=== PATIENT | female | born 1990 | race Caucasian/White ===

== ENCOUNTER 2017-11-23 10:56 | Inpatient (IN) | payer BC, OTHER ==
[~2017-11-23] VITALS: Ht 167.6 cm; Wt 65.8 kg
[2017-11-24] MEDS ORDERED: ONDANSETRON 4 MG/2 ML VIAL IM PRN (01:30)
[2017-11-24] MEDS ORDERED: DICYCLOMINE HCL 20 MG TABLET PO PRN (01:30)
[2017-11-24] MEDS ORDERED: LORAZEPAM 2 MG/1 ML VIAL IM PRN (01:30)
[2017-11-24] MEDS ORDERED: LOPERAMIDE HCL 2 MG CAPSULE PO PRN ×2 (01:30)
[2017-11-24] MEDS ORDERED: HYDROXYZINE PAMOATE 25 MG CAPSULE PO PRN (01:30)
[2017-11-24] MEDS ORDERED: diphenhydrAMINE 50 MG CAPSULE PO PRN (01:30)
[2017-11-24] MEDS ORDERED: DIAZEPAM 5 MG TABLET PO PRN (01:30)
[2017-11-24] MEDS ORDERED: BUPRENORPHINE HCL 2 MG TAB.SUBL SL PRN (01:30)
[2017-11-24] MEDS ORDERED: MAGNESIUM HYDROXIDE 30 ML LIQUID UDC PO PRN (01:30)
[2017-11-24] MEDS ORDERED: MAG HYDROX/AL HYDROX/SIMETH 30 ML LIQUID UDC PO PRN (01:30)
--- NOTE | 2017-11-24 02:00 | NUR ---
Intake Note: Pt is a 27 y/o female seen at intake, A&O x 4 and presents with anxiety, Nausea, stomach cramps, disheveled hair and restlessness. Pt is ambulatory with steady gait. Vital signs : BP 110/69, HR 86, RR 16, T 98.8, SaO2 96%, PA 2/10. Pt denies any allergies (NKA's) or seizure history. Pt reports longest period of sobriety at 1 year, ending in 2016, and has been using Xanax, Klonopin, Heroin and Methadone. Pt reports a PMH of anxiety, PSVT with ablation (2014), left hand surgery (2016), G2,P2. Pt brought no home medications. Educated pt rules and policies of the unit including handling of contraband and taking vital signs Q4H. Will continue care of patient upon arrival on unitl
[2017-11-24 02:32] LABS: *URINE HCG, QUAL NEGATIVE (NEGATIVE)
--- NOTE | 2017-11-24 02:45 | NUR ---
Admission Note: Pt arrived on the unit at 0215 on 11/24/17 for Benzo, and Opiate withdrawal. Skin and body check completed, skin intact and no contraband found. R anterior thigh presents with c/o pain (injection site, red, warm, inflamed). Pt is 5'6", and 145 lbs, Pt c/o possible weight loss of 15 lbs in last month. Initial COWS 13, CIWA 13. VS's BP 105/67, HR 86, RR 18, T 98.7, SaO2 96%. Pt is at moment a full code, but wishes to be made a DNR, is on a regular diet, with NKA's. Pt has a PMH of anxiety, PSVT with ablation in 2015, L hand surgery, and G2, P2. Reports both parents had substance abuse issues, she believes with crack cocaine and heroin, but doesn't remember since courts removed her at a very young age. Pt smokes about 20 cigarettes/day, refuses smoking cessation consult. Pt is < 65 and out of season for flu shot. LMP was about 3 years ago, pt denies control. Substance Use History: 1. Benzodiazapines: Xanax and Klonopin , PO 6mg/day daily for last 5 years. Last used on the . 2. Heroin 2-3 g/day IV daily for the last year, last used on the . 3. Methadone 40mg/day daily for the last 3 years, last used on the . Pt has been part of an outpatient Methadone clinic, but has never attended a detox or rehab facility before. Longest period of sobriety has been 1 year, ending in 2017. Pt does not attend AA, NA, have a home group not a sponsor. 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 When asked why she decided to come into treatment, pt responds "Been on Methadone for 3 years and its not working so I just want to get off of everything". Symptoms when not using are described as "I feel like I've been hit by a bus. Runny nose, nausea and vomiting. Cold spells, really achy joints. Really bad". Pt is A&O x 4, speech is coherent, pt is ambulatory with steady gait. Pt presents with anxiety, nausea, stomach cramps, disheveled hair and restlessness. Denies SI/HI at this time. PERRLA. Respirations even and nonlabored, lung sounds are clear in all lung clements. Denies chest pain or SOB. Abdomen soft and non tender, bowel sounds active in all 4 quadrants. Last BM 11/23/17. Pt oriented to room and educated patient about smoking and unit rules, how to use call light, pt verbalized understanding Safety measures in place, side rails up x 2 with pads, bed in lowest position. Call light within reach. Admitting orders have been placed. Addendum: 11/24/17 at 0630 by AR COREAS RN previous surgeries done at [facility], [place], [place]. Previous limousine rental clerk Dr Sahil Hou. Pt hospitalized for 10 days in 2016 for L hand surgery
[2017-11-24 02:48] LABS: *AMPHETAMINE, URINE NEGATIVE (NEGATIVE); *BARBITURATE, URINE NEGATIVE (NEGATIVE); *CANNABINOID, URINE NEGATIVE (NEGATIVE); *COCCAINE, URINE NEGATIVE (NEGATIVE); *OPIATE, URINE POSITIVE (NEGATIVE); *PHENCYCLIDINE SCREEN,URINE NEGATIVE (NEGATIVE)
[2017-11-24] MEDS: DIAZEPAM 10 MG TABLET PO PRN ×3 (03:38→14:46)
[2017-11-24] MEDS: METHOCARBAMOL 750 MG TABLET PO PRN ×2 (03:38→13:14)
--- NOTE | 2017-11-24 03:38 | NUR ---
PRN Meds Robaxin 750mg PO for generalized B/A, RLE pain, and Valium 10mg PO for anxiety, Benzo W/D given. Will continue to monitor pt, reassessing in 1 hour, promptly attending to all pt needs.
[2017-11-24 04:00] VITALS: BP 105/67
--- NOTE | 2017-11-24 04:38 | NUR ---
PRN Reassessment Robaxin 750mg PO for B/A's and Valium 10mg PO for benzo withdrawal given 1 hour prior. At present pt sleeping, RR 14, even and nonlabored. Meds effective.
[2017-11-24 06:57] LABS: ALANINE AMINOTRANSFERASE 35 U/L (14-59); ALKALINE PHOSPHATASE 122 U/L (50-136); AMYLASE 22 U/L (25-115); ASPARTATE AMINOTRANSFERASE 22 U/L (15-37); BILIRUBIN,TOTAL 0.9 mg/dL (0.2-1.0); CARBON DIOXIDE 31 mmol/L (21-32); CHLORIDE 103 mmol/L (98-107); CREATININE 0.7 mg/dL (0.6-1.3); GLUCOSE 143 mg/dL (74-106); LIPASE 57 U/L (73-393); MAGNESIUM 2.1 mg/dL (1.8-2.4); POTASSIUM 4.1 mmol/L (3.5-5.1); TOTAL PROTEIN, SERUM 8.3 g/dL (6.4-8.2); UREA NITROGEN, BLOOD 7 mg/dL (7-18)
[2017-11-24 07:01] LABS: THYROID STIMULATING HORMONE 0.883 mIU/mL (0.358-3.740)
[2017-11-24 07:12] LABS: BASOPHILS # (AUTO) 0.1 K/uL (0.0-8.0); BASOPHILS % (AUTO) 0.5 % (0.0-2.0); EOSINOPHILS # (AUTO) 0.1 K/uL (0.0-0.7); EOSINOPHILS % (AUTO) 0.7 % (0.0-7.0); HEMATOCRIT 39.8 % (31.2-41.9); LYMPHOCYTES # (AUTO) 1.7 K/uL (20.0-40.0); LYMPHOCYTES % (AUTO) 15.9 % (20.5-51.5); MEAN CORPUSCULAR HEMOGLOBIN 30.6 uug (24.7-32.8); MEAN CORPUSCULAR HGB CONC 35 g/dL (32.3-35.6); MEAN CORPUSCULAR VOLUME 87.3 fL (75.5-95.3); MONOCYTES # (AUTO) 0.9 K/uL (2.0-10.0); MONOCYTES % (AUTO) 8.2 % (0.0-11.0); NEUTROPHILS # (AUTO) 8.1 K/uL (1.8-8.9); NEUTROPHILS % (AUTO) 74.7 % (38.5-71.5); PLATELET COUNT (AUTO) 146 K/uL (179-408); RED BLOOD CELL COUNT(AUTO) 4.56 MIL/uL (3.63-4.92); WHITE BLOOD COUNT (AUTO) 10.8 K/uL (3.8-11.8)
--- NOTE | 2017-11-24 07:15 | NUR ---
START OF SHIFT: PATIENT IS A 27 YR OLD FEMALE ADMITTED TO [facility] ON 11/24/17 ( EARLY THIS AM) FOR A MEDICALLY SUPERVISED WITHDRAWAL FROM BENZODIAZEPINES( XANAX AND KLONOPIN) AND OPIATES ( HEROIN IV AND METHADONE). SHE IS ASLEEP IN BED AT THIS TIME, BREATHING EVEN AND UNLABORED, SIDE RAILS UP X2, CALL LIGHT WITHIN REACH. PRN MEDS GIVEN ON PM SHIFT : VALIUM 10MG PO AND ROBAXIN 750MG PO, SHE SLEPT FOR 3+ HOURS AND LAST COWS 13 AND CIWA 13. WAITING FOR MD TO SEE PATIENT AND ORDER TAPER SO PRN MEDS AVAILABLE AT THIS TIME. CONTINUE TO MONITOR AND OFFER SUPPORT NEEDED.
--- NOTE | 2017-11-24 07:36 | NUR ---
End of Shift Pt is a 27 y/o female admitted 11/24/17 for medically managed withdrawal/detox from Benzodiazapines, and Opiates. Pt is a full code, wishing to be converted to a DNR, on a regular diet with NKS's. Pt presents with a PMH of anxiety, PSVT with ablation, L hand surgery, and G2, P2. Pt remains on Valium PRN's for sliding CIWA's. Last CIWA was 13 at 0400. Pt slept for 3 hours with 729 mls intake, 1 void and no BM's. Admission done, pt medicated with 10 mg Valium PO and Robaxin 750mg PO. Endorsement given to day nurse.
[2017-11-24 08:00] VITALS: BP 102/67
[2017-11-24 08:15] LABS: ETHANOL < 3 MG/DL (0-0)
[2017-11-24] MEDS ORDERED: MULTIVITAMINS,THERAPEUTIC TABLET PO SCH (09:00)
[2017-11-24] MEDS: ACETAMINOPHEN 325 MG TABLET PO PRN ×2 (09:00→16:28)
[2017-11-24] MEDS: IBUPROFEN 600 MG TABLET PO PRN ×2 (09:00→16:28)
--- NOTE | 2017-11-24 09:00 | NUR ---
PRN MEDICATION: VALIUM 10MG PO GIVEN FOR S/S OF WITHDRAWAL, ANXIETY, DIAPHORESIS, RESTLESSNESS CIWA 13 [id number] PO AND TYLENOL 650MG PO GIVEN FOR RIGHT THIGH PAIN 11/17 WILL REASSESS
--- NOTE | 2017-11-24 10:00 | NUR ---
PRN REASSESS PATIENT IS LESS ANXIOUS, VALIUM EFFECTIVE, PAIN IN RIGHT THIGH STILL PRESENT, WILL HAVE MD CHECK. PAIN NOW 4/10 , TYLENOL AND MOTRIN MILDLY EFFECTIVE
[2017-11-24 12:32] VITALS: BP 102/66
[2017-11-24] MEDS: DIAZEPAM 10 MG TABLET PO SCH ×3 (13:14→20:46)
--- NOTE | 2017-11-24 13:15 | NUR ---
PRN ROBAXIN ROBAXIN 750MG PO GIVEN FOR REPORTS OF GENERALIZED BODY PAIN 11/17 WILL REASSESS
--- NOTE | 2017-11-24 14:15 | NUR ---
PRN REASSESS ROBAXIN 750MG PO EFFECTIVE, PAIN LEVEL NOW 3/10, CONT TO MONITOR
[2017-11-24] MEDS: CEPHALEXIN MONOHYDRATE 500 MG CAPSULE PO SCH ×2 (14:41→20:47)
--- NOTE | 2017-11-24 14:45 | NUR ---
PRN VALIUM 10MG PO VALIUM GIVEN FOR S/S OF WITHDRAWAL, SWEATING, RESTLESSNESS AND HIGH ANXIETY CIWA 14
--- NOTE | 2017-11-24 15:45 | NUR ---
PRN VALIUM REASSESS VALIUM EFFECTIVE, PT IS LESS ANXIOUS AND STATES SHE FEELS " MORE RELAXED" CIWA NOW 12
[2017-11-24 16:00] VITALS: BP 92/68
--- NOTE | 2017-11-24 16:30 | NUR ---
MOTRIN/TYLENOL PRN MOTRIN 600MG PO AND TYLENOL 650 PO GIVEN FOR HEADACHE 5/10 WILL REASSESS
--- NOTE | 2017-11-24 17:30 | NUR ---
PRN REASSESS MOTRIN AND TYLENOL EFFECTIVE, PAIN NOW 07/20
[2017-11-24] MEDS: MIRALAX 17 GM POWD.PACK PO PRN (18:43)
--- NOTE | 2017-11-24 18:45 | NUR ---
PRN VALIUM/ MIRALAX VALIUM 10MG PO GIVEN FOR S/S OF WITHDRAWAL, HIGH ANXIETY, DIAPHORESIS, RESTLESSNESS MIRALAX 17G PO FOR HARD STOOL
--- NOTE | 2017-11-24 19:19 | NUR ---
END OF SHIFT: PATIENT IS A 27 YR OLD FEMALE ADMITTED TODAY 11/24/17 TO [facility] FOR A MEDICALLY SUPERVISED WITHDRAWAL FROM BENZODIAZEPINES ( XANAX AND KLONIPIN) AND OPIATES ( HEROIN AND METHADONE). SHE STARTED A 5 DAY VALIUM TAPER TODAY AND TOMORROW WILL START A 5 DAY SUBUTEX TAPER . SHE HAS BEEN ISOLATED TO HER ROOM THIS SHIFT, HER MOOD IS FLAT AND DEPRESSED, HER WITHDRAWAL SYMPTOMS TODAY HAVE INCLUDED : DIAPHORESIS, HIGH ANXIETY, RESTLESSNESS, HEADACHE AND GENERALIZED BODY ACHES. PRN MEDICATIONS GIVEN THIS SHIFT : MOTRIN X2, TYLENOL X2, VALIUM 10MG X3, AND ROBAXIN. LAST COWS 11 AND CIWA 12 @ 1600. MD ORDERED KEFLEX 500MG PO TID FOR RIGHT THIGH CELLULITIS. EKG PERFORMED DUE TO PATIENT HISTORY OF PSVT. SHE HAD A FLUID INTAKE OF 2600 ML,4 VOIDS AND 1 BM. CONTINUE TO FOLLOW MD PLAN OF CARE AND OFFER SUPPORT NEEDED. ENDORSED TO COMPRESSOR STATION ENGINEER CHIEF.
--- NOTE | 2017-11-24 19:30 | NUR ---
Start of Shift Pt is a 27 y/o female admitted 11/24/17 for medically managed withdrawal/detox from Benzodiazapines, and Opiates. Pt is a full code, on a regular diet with NKA's. Pt presents with a PMH of anxiety, PSVT with ablation, L hand surgery, and G2, P2. Pt is on a 5 day Valium taper, started 10/24/17 Last CIWA was 12 at 1600. Subutex taper beginning 11/25/17 am, Pt found in room sleeping in bed on side, arousable to voice. Pt groggy, diaphoretic, able to answer questions and respond to commands appropriately however. Pt reports 5/10 r upper leg pain, nausea, sweats. Evening meds reviewed with Balwinder and Jermaine requested. Will administer evening meds and monitor pt, promptly attending to all needs
[2017-11-24 20:00] VITALS: BP 100/62
[2017-11-24] MEDS: LACTOBACILLUS RHAMNOSUS GG 1 EACH CAPSULE PO SCH (20:45)
[2017-11-24] MEDS: ONDANSETRON ODT 4 MG TAB.RAPDIS SL PRN (20:47)
[2017-11-24] MEDS: GABAPENTIN 300 MG CAPSULE PO SCH (20:47)
[2017-11-24] MEDS: QUETIAPINE FUMARATE 25 MG TABLET PO PRN (20:47)
--- NOTE | 2017-11-24 20:47 | NUR ---
PRN Meds Seroquel 50mg PO for anxiety/insomnia, Zofran 4mg SL for nausea given. Will continue to monitor and reassess in 1 hour.
--- NOTE | 2017-11-24 21:47 | NUR ---
PRN Reassessment Seroquel 50mg PO for anxiety/insomnia and Zofran 4mg SL for nausea 1 hour prior. At present pt found sitting up in bed watching tv, eating snack. Pt reports feeling drowsy, nausea improved. Meds effective.
[2017-11-25] VITALS (7 sets, daily range): BP systolic 90–115; BP diastolic 48–70
--- NOTE | 2017-11-25 04:00 | NUR ---
COWS/CIWA Deferred VS's obtained, COWS & CIWA deferred r/t pt sleeping/refused. Will continue to monitor
[2017-11-25] MEDS: DIAZEPAM 10 MG TABLET PO PRN ×3 (06:36→12:22)
[2017-11-25] MEDS: METHOCARBAMOL 750 MG TABLET PO PRN ×2 (06:36→20:26)
--- NOTE | 2017-11-25 06:36 | NUR ---
PRN Meds Valium 20mg PO for a CIWA of 19, and Robaxin 750mg PO for generalized B/A's, 11/17 given. Will continue to monitor, and reassess in 1 hour.
--- NOTE | 2017-11-25 06:58 | NUR ---
End of Shift Pt is a 27 y/o female admitted 11/24/17 for medically managed withdrawal/detox from Benzodiazapines, and Opiates. Pt is a full code, on a regular diet with NKA's. Pt presents with a PMH of anxiety, PSVT with ablation, L hand surgery, and G2, P2. Pt is on a 5 day Valium taper, started 10/24/17 Last CIWA was 12 at 1600. Subutex taper beginning 11/25/17 am. PRN's for shift included Seroquel 50mg PO for anxiety/insomnia, Zofran 4mg SL for nausea, Robaxin 750mg for generalized B/A'a and Valium 20mg PO for a CIWA of 19. Pt appeared diaphoretic, tremulous, pupils dilated, some nausea. Last COWS & CIWA were 18 & 19 at 0615 hours. Pt slept for 7 hours, with 573 mls intake, 2 voids and no BM's. Endorsement given to day nurse.
--- NOTE | 2017-11-25 07:25 | NUR ---
START OF SHIFT: PATIENT IS A 27 YR OLD FEMALE ADMITTED TO [facility] ON 11/24/17 FOR A MEDICALLY SUPERVISED WITHDRAWAL FROM BENZODIAZEPINES( XANAX/ KLONOPIN) OPIATES ( HEROIN IV/ METHADONE). SHE STARTED A 5 DAY VALIUM TAPER YESTERDAY 11/24/17 AND TODAY WILL START A 5 DAY SUBUTEX TAPER. PRN MEDS GIVEN ON PM SHIFT: VALIUM 20MG , ROBAXIN , SEROQUEL AND ZOFRAN SL. SHE SLEPT FOR 7 HOURS AND LAST COWS 18 AND CIWA 17 @ 0600. PATIENT IS ASLEEP IN BED AT THIS TIME, BREATHING EVEN AND UNLABORED, SIDE RAILS UP X2, CALL LIGHT WITHIN REACH. CONTINUE TO FOLLOW MD PLAN OF CARE.
--- NOTE | 2017-11-25 07:35 | NUR ---
PRN VALIUM REASSESS PATIENT ASLEEP IN BED, BREATHING EVEN AND UNLABORED, WILL CONTINUE TO MONITOR
[2017-11-25] MEDS ORDERED: TUBERCULIN,PURIF.PROT.DERIV. 5 TU/0.1 ML TEST ID ONE (09:00)
[2017-11-25] MEDS ORDERED: BUPRENORPHINE HCL 2 MG TAB.SUBL SL SCH (09:00)
[2017-11-25] MEDS ORDERED: DIAZEPAM 10 MG TABLET PO SCH ×2 (09:00→15:00)
--- NOTE | 2017-11-25 09:00 | NUR ---
TB SKIN TEST REFUSED
[2017-11-25] MEDS: CEPHALEXIN MONOHYDRATE 500 MG CAPSULE PO SCH ×3 (09:06→20:30)
[2017-11-25] MEDS: GABAPENTIN 300 MG CAPSULE PO SCH ×3 (09:06→20:29)
[2017-11-25] MEDS: LACTOBACILLUS RHAMNOSUS GG 1 EACH CAPSULE PO SCH ×2 (09:06→20:28)
[2017-11-25] MEDS ORDERED: DIAZEPAM 10 MG TABLET PO ONE (10:45)
--- NOTE | 2017-11-25 10:50 | NUR ---
PRN VALIUM 10MG VALIUM 10MG PO GIVEN FOR S/S OF WITHDRAWAL, NAUSEA WITHOUT VOMITING, DIAPHORESIS, MUSCLE CRAMPS CIWA 17 ( AN ADDITIONAL 10MG WAS ALSO GIVEN A ONE TIME ORDER FROM MD)
[2017-11-25] MEDS: IBUPROFEN 600 MG TABLET PO PRN (11:13)
[2017-11-25] MEDS: ACETAMINOPHEN 325 MG TABLET PO PRN (11:13)
[2017-11-25] MEDS: CLONIDINE HCL 0.1 MG TABLET PO PRN ×2 (11:14→20:28)
[2017-11-25] MEDS: ONDANSETRON ODT 4 MG TAB.RAPDIS SL PRN (11:14)
--- NOTE | 2017-11-25 11:15 | NUR ---
PRN MEDICATIONS CLONIDINE 0.1MG PO FOR INCREASED ANXIETY MOTRIN 600MG PO FOR BODY ACHES TYLENOL 650MG PO FOR BODY ACHES ZOFRAN 4 MG SL FOR NAUSEA WILL REASSESS Addendum: 11/25/17 at 1345 by EVERTON LERMA RN PAIN LEVEL 7/10
--- NOTE | 2017-11-25 12:15 | NUR ---
PRN REASSESS NAUSEA CEASED, ZOFRAN 4MG SL EFFECTIVE MOTRIN AND TYLENOL SLIGHTLY EFFECTIVE FOR BODY ACHES, PAIN LEVEL NOW 4/10 CONTINUE TO MONITOR
--- NOTE | 2017-11-25 12:25 | NUR ---
PRN VALIUM 20MG PO GIVEN FOR INCREASED ANXIETY / AGITATION / WITHDRAWALS CIWA 17 BENTYL 20MG PO GIVEN FOR STOMACH SPASMS WILL REASSESS
[2017-11-25 13:06] LABS: HEPATITIS B SURFACE AG Negative (Negative)
--- NOTE | 2017-11-25 13:25 | NUR ---
PRN REASSESS PATIENT IS ASLEEP IN BED AT THIS TIME, BREATHING IS EVEN AND UNLABORED WILL CONTINUE TO MONITOR
[2017-11-25] MEDS: DIAZEPAM 10 MG TABLET PO SCH ×2 (16:04→20:26)
[2017-11-25] MEDS: BUPRENORPHINE HCL 2 MG TAB.SUBL SL SCH ×2 (17:00→20:29)
--- NOTE | 2017-11-25 18:50 | NUR ---
END OF SHIFT: PATIENT IS A 27 YR OLD FEMALE WHO WAS ADMITTED TO [facility] ON 11/24/17 FOR A MEDICALLY SUPERVISED WITHDRAWAL FROM BENZODIAZEPINES ( XANAX AND KLONOPIN) AND OPIATES ( HEROIN AND METHADONE ) SHE HAS BEEN PLACED ON A 5 DAY VALIUM TAPER WHICH STARTED 11/24/17 AND A 5 DAY SUBUTEX TAPER WHICH STARTED TODAY 11/25/17. PATIENTS WITHDRAWAL SYMPTOMS INCLUDE: DIAPHORESIS, CHILLS, RESTLESS LEGS, HIGH ANXIETY, NAUSEA AND AGITATION. PRN MEDICATION GIVEN ON THIS SHIFT : VALIUM 10MG PO, VALIUM 20MG PO, ZOFRAN, CLONIDINE, MOTRIN, TYLENOL AND BENTYL. SHE REFUSED PPD . SHE HAS NOT ATTENDED GROUP TODAY AND GOES TO [facility] TO SMOKE ON OCCASION AND INTERACTS WITH HER PEERS. SHE HAD A FLUID INTAKE OF 1750 ML, 8 VOIDS AND 1 BM. LAST COWS 11 AND CIWA 16 @1600. SHE CONTINUES ON PO KEFLEX TID FOR RIGHT THIGH CELLULITIS. CONTINUE TO FOLLOW MD PLAN OF CARE AND OFFER SUPPORT NEEDED. ENDORSED TO BUTTER PRODUCTION SUPERVISOR.
--- NOTE | 2017-11-25 19:30 | NUR ---
Start of Shift Pt endorsement received from day nurse. Pt found sleeping in darkened room, arousable to voice, Pt appears somnalent, fatigued. Pt is disheveled and unkempt, appears older than stated age with very pale skin color with unwashed hair. Room presents an odor, with clothes and bedding strewn about, empty food and drink containers. Pt sad/worried looking with poor eye contact. Presents with lethargy as detailing her precipitated w/d earlier in day and need for wheelchair in room. Evening dose of Subutex discussed, pt initially fearful and overwhelmed but reassured of safety and effectiveness at present. Speech is soft. Pt presents with c/o sweats and chills, pupils dilated, runny/congestied nose, hand tremors moderate, agitated, anxiety reported as high. Dr Bob consulted and requested Clonidine 0.1mg PO be given, no further contact necessary before evening Subutex. Evening meds discussed with Josue, Clonidine as PRN's . Will continue to monitor for shift until morning endorsement
--- NOTE | 2017-11-25 20:28 | NUR ---
PRN Meds Seroquel 50mg PO for sleep, Clonidine 0.1mg PO for anxiety/agitation, and Robaxin 750mg PO for generalized B/A's, RLE pain given. Will continue to monitor and reassess in 1 hour.
[2017-11-25] MEDS: QUETIAPINE FUMARATE 25 MG TABLET PO PRN (20:30)
--- NOTE | 2017-11-25 21:28 | NUR ---
PRN Reassessment Seroquel 50mg PO for sleep, Clonidine 0.1mg PO for anxiety/agitation, and Robaxin 750mg PO for generalized B/A's and RLE pain 6/10 given 1 hour prior. At present pt is sleeping, RR 14, even and nonlabored. Meds effective.
[2017-11-26] VITALS: BP 91/55
--- NOTE | 2017-11-26 | NUR ---
CIWA Deferred Midnight VS's obtained, VSS. CIWA deferred r/t pt sleeping. Will continue to monitor
[2017-11-26] MEDS: DIAZEPAM 10 MG TABLET PO PRN ×2 (01:39→11:57)
--- NOTE | 2017-11-26 01:39 | NUR ---
PRN Med Valium 20mg PO given for CIWA 16. Pt presents with sweats, high anxiety/agitation. Will continue to monitor and reassess in 1 hour.
--- NOTE | 2017-11-26 02:39 | NUR ---
PRN Reassessment Valium 20mg PO given 1 hour prior for CIWA 16. At present pt sleeping, RR 14, even and nonlabored, pt forehead less moist. Med effective.
[2017-11-26 04:00] VITALS: BP 91/55
--- NOTE | 2017-11-26 04:00 | NUR ---
COWS/CIWA Deferred 0400 COWS & CIWA deferred. VSS BP 91/55, HR 82. Will continue to monitor pt
--- NOTE | 2017-11-26 07:39 | NUR ---
End of Shift Endorsement reported to day nurse. No significant episodes for this shift. Evening Subutex was accepted after reassured of its efficacy after first morning administration. COWS at 2000 hours 14 (Pupils dilated, yawning. Pt appearing pale, lethargic, wheelchair in room for use. Pt slept for 9 hours this shift. PRN's in evening included Seroquel, Clonidine and Robaxin, with pt requesting her "PRN Valium" at 0130. 20mg given for CIWA of 16 (high for anxiety, sweats, tremors). Pt off unit to smoke after. Pt intake for shift was 573 mls, with 1 void and no BM's.
[2017-11-26 08:00] VITALS: BP 106/69
[2017-11-26] MEDS: LACTOBACILLUS RHAMNOSUS GG 1 EACH CAPSULE PO SCH ×2 (08:25→20:32)
[2017-11-26] MEDS: DIAZEPAM 10 MG TABLET PO SCH ×3 (08:25→20:32)
[2017-11-26] MEDS: ACETAMINOPHEN 325 MG TABLET PO PRN (08:25)
[2017-11-26] MEDS: GABAPENTIN 300 MG CAPSULE PO SCH ×2 (08:26→15:27)
[2017-11-26] MEDS: CEPHALEXIN MONOHYDRATE 500 MG CAPSULE PO SCH ×3 (08:26→20:32)
--- NOTE | 2017-11-26 08:32 | NUR ---
START OF SHIFT: RECEIVED PT A/O X 4./ SHE PRESENTS WITH ANXIOUS MOOD AND CONGRUENT AFFECT. FINE TREMORS NOTED TO BUE. SHE REPORTS RESTLESSNESS,ANXIETY H/A 8/10 ON PAIN SCALE,STOMACH CRAMPS AND IRRITABILITY. VALIUM /SUBUTEX TAPER IN PROGRESS TO MANAGE W/D. PRN TYLENOL GIVEN FOR H/A. ENCOURAGED INCREASED FLUIDS TO ASSIST IN FACILITATING DETOX PROCESS. ENCOURAGED GROUP ATTENDANCE TO IMPROVE COPING SKILLS AND PREVENT RELAPSE. WILL CONTINUE TO MONITOR.
[2017-11-26] MEDS ORDERED: DIAZEPAM 5 MG TABLET PO SCH (09:00)
[2017-11-26] MEDS ORDERED: BUPRENORPHINE HCL 2 MG TAB.SUBL SL SCH (09:00)
--- NOTE | 2017-11-26 09:30 | NUR ---
PT STATES THE TYLENOL WAS EFFECTIVE. H/A 07/20. WILL CONTINUE TO MONITOR.
[2017-11-26 11:25] LABS: BASOPHILS # (AUTO) 0.1 K/uL (0.0-8.0); BASOPHILS % (AUTO) 0.7 % (0.0-2.0); EOSINOPHILS # (AUTO) 0.1 K/uL (0.0-0.7); EOSINOPHILS % (AUTO) 1.2 % (0.0-7.0); HEMATOCRIT 37.8 % (31.2-41.9); HEMOGLOBIN 13.1 g/dL (10.9-14.3); LYMPHOCYTES # (AUTO) 1.8 K/uL (20.0-40.0); MEAN CORPUSCULAR HEMOGLOBIN 30.3 uug (24.7-32.8); MEAN CORPUSCULAR HGB CONC 35 g/dL (32.3-35.6); MEAN CORPUSCULAR VOLUME 87.2 fL (75.5-95.3); MONOCYTES # (AUTO) 0.6 K/uL (2.0-10.0); MONOCYTES % (AUTO) 6.5 % (0.0-11.0); NEUTROPHILS # (AUTO) 6.3 K/uL (1.8-8.9); NEUTROPHILS % (AUTO) 71.6 % (38.5-71.5); PLATELET COUNT (AUTO) 173 K/uL (179-408); RED BLOOD CELL COUNT(AUTO) 4.33 MIL/uL (3.63-4.92); WHITE BLOOD COUNT (AUTO) 8.8 K/uL (3.8-11.8)
[2017-11-26] MEDS: IBUPROFEN 600 MG TABLET PO PRN (11:57)
[2017-11-26 12:00] VITALS: BP 101/60
--- NOTE | 2017-11-26 12:00 | NUR ---
PRN VALIUM 10 MG PO GIVEN FOR CIWA 12. PRN MOTRIN 600MG PO GIVEN FOR H/A 10/17. WILL MONITOR EFFECTIVENESS OF PRN MED.
[2017-11-26 12:03] LABS: CREATININE 0.7 mg/dL (0.6-1.3); MAGNESIUM 1.9 mg/dL (1.8-2.4); POTASSIUM 3.9 mmol/L (3.5-5.1)
--- NOTE | 2017-11-26 13:00 | NUR ---
PRN VALIUM 10 MG PO EFFECTIVE. CIWA 8 MOTRIN EFFECTIVE H/A 07/20
[2017-11-26] MEDS ORDERED: BACLOFEN 10 MG TABLET PO SCH (15:00)
[2017-11-26] MEDS: BUPRENORPHINE HCL 2 MG TAB.SUBL SL SCH ×2 (15:27→20:32)
[2017-11-26] MEDS: DICYCLOMINE HCL 20 MG TABLET PO SCH ×2 (15:27→20:32)
--- NOTE | 2017-11-26 15:30 | NUR ---
PT C/O REDNESS AND PAIN TO R THIGH. AREA IS WARM TO TOUCH AND HARD. SHE STATES SHE FEELS LIKE ITS GETTING WORSE. MADE AWARE. NEW ORDER FOR SURGEON CONSULT AND PRN TORADOL FOR PAIN. ORDERS NOTED AND CARRIED OUT.
[2017-11-26 16:00] VITALS: BP 110/69
[2017-11-26] MEDS: KETOROLAC TROMETHAMINE 30 MG INJ IM PRN ×2 (16:19→20:33)
[2017-11-26] MEDS ORDERED: LIDOCAINE 1%-EPI 1:100,000 20 ML VIAL TP ONE (16:45)
--- NOTE | 2017-11-26 16:50 | NUR ---
PRN TORADOL 30 MG IM ADMINISTERED TO R DELTOID PRIOR TO I&D.DR. JANE EXPLAINED PROCEDURE. CONSENT SIGNED.LIDOCAINE ADMINISTERED BY . CULTURE COLLECTED AND AWAITING RESULTS. PT TOLERATED PROCEDURE WELL. WOUND WAS PACKED AND PRESSURE DRESSING APPLIED. SHE CONTINUES ON ABT.
[2017-11-26] MEDS: CLONIDINE HCL 0.1 MG TABLET PO PRN (18:24)
--- NOTE | 2017-11-26 18:26 | NUR ---
PRN CLONIDINE GIVEN FOR REPORTED SWEATS,ANXIETY AND CHILLS. WILL MONITOR EFFECTIVENESS.
--- NOTE | 2017-11-26 18:55 | NUR ---
END OF SHIFT: PT CONTINUES ON VALIUM SUBUTEX TAPER. PRN TYLENOL,MOTRIN,VALIUM AND TORADOL GIVEN ALONG WITH PRN CLONIDINE WHICH WAS EFFECTIVE IN REDUCING S/S OF W/D. LAST COWS [address] JANE DID AN I&D ON R THIGH ABSCESS AND SHE TOLERATED PROCEDURE WELL. NEW ORDERS FOR WOUND CARE NOTED. HER MOOD IS LABILE AND AFFECT IS CONGRUENT. PT ATTENDED SOME GROUPS TODAY. SHE WAS COMPLIANT WITH INCREASED FLUIDS. WILL PASS SHIFT REPORT TO ONCOMING NIGHT NURSE.
--- NOTE | 2017-11-26 19:50 | NUR ---
Start of Shift Note Received 27 y/o female px, admitted for medically supervised withdrawal from Xanax, Heroin and Methadone. Px was placed on 5 day Valium and 5 day Subutex taper. Px is tolerating them. Last reported COWS 11 and CIWA 8 by AM shift nurse. During the rounds at 1950, px is awake on bed in fowlers position. Px appears in pain, guarded, moaning. Px has good eye contact. Few drinks and snacks on top on bed side table noted. Px stated I have H/A of 10/10, maybe it has to do with my toothache 8/10. My anxiety is high at 8/10. Bilateral hand tremors noted. Pressure dressing noted on anterior right thigh. Bed on lowest position, side rails up and call light within reach. Well continue to monitor.
[2017-11-26 20:00] VITALS: BP 123/78
[2017-11-26] MEDS: BACLOFEN 10 MG TABLET PO SCH (20:32)
[2017-11-26] MEDS: CLONIDINE HCL 0.1 MG TABLET PO SCH (20:32)
--- NOTE | 2017-11-26 20:33 | NUR ---
PRN Toradol Px received Toradol 30 mg IM on right deltoids as PRN med for H/A of 03/19 and toothache of 8. We'll continue to monitor.
[2017-11-26] MEDS ORDERED: GABAPENTIN 300 MG CAPSULE PO SCH (21:00)
--- NOTE | 2017-11-26 21:05 | NUR ---
Reassessment of pain Px stated "It's better now compared a while ago. My toothache is around 7/10 and my H/A is 5/10." We'll continue to monitor.
[2017-11-27] VITALS: BP 102/67
--- NOTE | 2017-11-27 01:00 | NUR ---
Reassessment of Dental Pain Px stated that her toothache is relieved by Ambesol oral care for few hours but pain goes back in. Px added "Motrin help out a little."
[2017-11-27] MEDS: QUETIAPINE FUMARATE 25 MG TABLET PO PRN (01:37)
--- NOTE | 2017-11-27 01:37 | NUR ---
PRN medications At 0137, px received Seroquel 25 mg/tab, 2 tabs PO for insomnia. At 013, px received Ambesol oral care for toothache 12/17. At 014, px was given Valium 10 mg/tab, 1 tab PO for CIWA 14. We'll continue to monitor.
[2017-11-27] MEDS: BENZOCAINE ORAL CARE 12 ML BOTTLE MM PRN ×3 (01:38→23:59)
[2017-11-27] MEDS: DIAZEPAM 10 MG TABLET PO PRN (01:44)
--- NOTE | 2017-11-27 02:10 | NUR ---
Reassessment of toothache Px stated "It's still painful but its better." We'll continue to monitor.
[2017-11-27 04:00] VITALS: BP 105/66
--- NOTE | 2017-11-27 04:00 | NUR ---
COWS and CIWA deferred COWS and CIWA deferred due to the px is asleep, to assess if the px is awake per doctor's order. We'll continue to monitor.
--- NOTE | 2017-11-27 07:10 | NUR ---
End of Shift Note During the shift at 2032, px received Toradol 30 mg IM as PRN med for H/A of 03/19 and toothache of 01/17. It was effective. At 136, px received Seroquel 50 mg PO for insomnia and Ambesol oral care for toothache. At 143, px received Valium 10 mg PO for CIWA 14. They were effective. Pxs oral intake is 750 ml, voided 3x, No BM. Px slept for 6.5 hours. Last COWS 9 and CIWA 14. At 0630, px is asleep on bed in fowlers position. Bed on lowest position, side rails up and call light within reach. Well continue to monitor. Px endorsed to AM shift nurse.
--- NOTE | 2017-11-27 07:42 | NUR ---
START OF SHIFT Pt is a 27 yr old female, AA&Ox4. Pt was admitted on 11/24/17 for Opiate/ Benzo and Methadone withdrawal and is on 5 day Subutex and 5 day Valium taper as ordered. Medication neymar well. Received report from night stocker nurse. Pt received Toradol PRN, Anbesol PRN, Seroquel PRN and Valium PRN during the night. Medication was effective. Pt slept for 6 hrs. Last COWS score was 9 and CIWA score was 14. Pt is currently in bed sleeping with respirations even and unlabored. Skin is warm and moist to touch. Pt is receiving wound treatment on right thigh from s/p I&D. Pt is on fall and seizure precautions. Call light is within reach. Will continue to monitor.
[2017-11-27 08:00] VITALS: BP 98/63
[2017-11-27] MEDS: BUPRENORPHINE HCL 2 MG TAB.SUBL SL SCH ×3 (08:38→23:43)
[2017-11-27] MEDS: LACTOBACILLUS RHAMNOSUS GG 1 EACH CAPSULE PO SCH ×2 (08:38→23:45)
[2017-11-27] MEDS: DIAZEPAM 5 MG TABLET PO SCH ×3 (08:38→23:45)
[2017-11-27] MEDS: DICYCLOMINE HCL 20 MG TABLET PO SCH ×3 (08:39→23:44)
[2017-11-27] MEDS: BACLOFEN 10 MG TABLET PO SCH ×3 (08:39→23:44)
[2017-11-27] MEDS: GABAPENTIN 300 MG CAPSULE PO SCH ×3 (08:39→23:45)
[2017-11-27] MEDS: CEPHALEXIN MONOHYDRATE 500 MG CAPSULE PO SCH ×3 (08:39→23:44)
[2017-11-27] MEDS: CLONIDINE HCL 0.1 MG TABLET PO SCH ×3 (08:39→23:44)
[2017-11-27] MEDS: KETOROLAC TROMETHAMINE 30 MG INJ IM PRN (08:43)
--- NOTE | 2017-11-27 08:43 | NUR ---
PRN GIVEN Pt c/o right thigh pain / from post I&D done on 11/26/17. Pt is noted with facial grimacing. Toradol 30mg IM PRN was given as ordered. Will continue to monitor.
[2017-11-27] MEDS ORDERED: QUETIAPINE FUMARATE 25 MG TABLET PO PRN (09:00)
[2017-11-27] MEDS ORDERED: QUETIAPINE FUMARATE 100 MG TABLET PO PRN (09:15)
--- NOTE | 2017-11-27 09:43 | NUR ---
PRN RE-ASSESSMENT Toradol PRN was mildly effective. Pt continues to c/o pain on right thigh 5/10. Facial grimacing is observed. Will continue to monitor.
[2017-11-27] MEDS: SODIUM HYPOCHLORITE 0.125% 473 ML BOTTLE TP SCH (10:04)
[2017-11-27] MEDS ORDERED: SULFAMETH/TRIMETH 800/160 MG TABLET PO ONE (11:00)
[2017-11-27] MEDS ORDERED: ASPIRIN/ACETAMINOPHEN/CAFFEINE TABLET PO PRN (11:00)
[2017-11-27] MEDS ORDERED: DIAZEPAM 10 MG TABLET PO ONE (11:00)
[2017-11-27] MEDS ORDERED: IBUPROFEN 800 MG TABLET PO PRN (11:00)
--- NOTE | 2017-11-27 11:21 | NUR ---
ONE TIME ORDER Pt was seen and examined by Dr. Bob with new order for Valium 10mg PO x1 for anxiety. Medication was given as ordered. Will continue to monitor.
[2017-11-27 12:15] VITALS: BP 91/60
--- NOTE | 2017-11-27 12:21 | NUR ---
VALIUM RE-ASSESSMENT Valium 10mg PO x1 was effective. Pt is currently in bed sleeping resting with respirations even and unlabored. Will continue to monitor.
[2017-11-27] MEDS: ACETAMINOPHEN 325 MG TABLET PO SCH ×2 (14:39→23:43)
[2017-11-27 16:00] VITALS: BP 95/61
[2017-11-27] MEDS: HYDROXYZINE PAMOATE 25 MG CAPSULE PO PRN (17:46)
--- NOTE | 2017-11-27 17:47 | NUR ---
PRN GIVEN Pt c/o increase anxiety. Vistaril 25mg PO PRN was given as ordered. Medication neymar well. Will continue to monitor.
--- NOTE | 2017-11-27 18:47 | NUR ---
PRN RE-ASSESSMENT Vistaril PRN was effective. Pt continues to c/o anxiety but is able to cope with anxiety level. Will continue to monitor.
--- NOTE | 2017-11-27 19:11 | NUR ---
END OF SHIFT Pt is a 27 yr old female, AA&Ox4. Pt was admitted on 11/24/17 for Opiate/ Benzo and Methadone withdrawal and is on 5 day Subutex and 5 day Valium taper as ordered. Medication was neymar well. Pt has been noted with increase fatigue and remained in her room throughout the day. Pt was c/o anxiety, agitation, restlessness and muscle aching and right thigh pain. Pt received Toradol 30mg IM PRN at 0843 for pain 8/10 on right thigh and prior to wound care. Medication was effective. Pt also received Valium 10mg PO x1 for increase anxiety at 1121. Medication was effective. Pt was given Vistaril 25mg PO PRN was given as ordered at 1746 for anxiety. Medication was effective. Last COWS score was 8 and CIWA score was 8 at 1600. Pt is on Bactrim DS and Keflex for open wound on right thigh. No adverse reaction noted. Encouraged increase fluid intake for hydration. Pt is on fall and seizure precautions. Call light is within reach. Endorsed to night stocker nurse to continue with care.
--- NOTE | 2017-11-27 19:30 | NUR ---
Start of Shift Note Received 27 y/o female px, admitted for medically supervised withdrawal from Xanax, Heroin and Methadone. Px was placed on 5 day Valium and 5 day Subutex taper. Px is tolerating them. Last reported COWS 8 and CIWA 8 by AM shift nurse. During the rounds at 1930, px is awake standing inside her room. Px appears in pain and guarded. Px has good eye contact. Few drinks and snacks on top on bed side table noted. Px stated I have toothache again 10/10. My anxiety is high at 8/10. Bilateral hand tremors noted. Pressure dressing noted on anterior right thigh. Bed on lowest position, side rails up and call light within reach. Well continue to monitor.
--- NOTE | 2017-11-27 19:35 | NUR ---
PRN medications At 193, px received Ambesol oral care for toothache of 03/19 and again at 2358. At 2344, px received Seroquel 100 mg PO for insomnia. At 2358, px received Motrin 800 mg PO for pain. At 323, px received Vistaril 25 mg and Robaxin 750 PO for anxiety and body aches. We'll continue to monitor.
[2017-11-27 20:00] VITALS: BP 91/57
--- NOTE | 2017-11-27 21:00 | NUR ---
Medications delayed Medications scheduled at 2100 were delayed for a moment due to the px was sleeping.
[2017-11-27] MEDS: SULFAMETH/TRIMETH 800/160 MG TABLET PO SCH (23:45)
[2017-11-28] VITALS: BP 119/82
[2017-11-28] MEDS: METHOCARBAMOL 750 MG TABLET PO PRN ×2 (03:24→13:43)
[2017-11-28] MEDS: HYDROXYZINE PAMOATE 25 MG CAPSULE PO PRN ×2 (03:24→13:43)
[2017-11-28 04:00] VITALS: BP 125/83
--- NOTE | 2017-11-28 04:30 | NUR ---
Reassessment of anxiety and body aches Px stated that her body aches were gone and her anxiety has improved. We'll continue to monitor.
--- NOTE | 2017-11-28 07:10 | NUR ---
End of Shift Note During the shift, px received Ambesol dental care at 1935 and at 2358, they were effective for few hours. At 234,px received Seroquel 100 mg PO for insomnia. It was not effective. At 2358, Motrin 800 mg given PO for toothache. It was a effective. At 323, Px received Robaxin 750 mg Po and Vistaril 25 mg PO for body aches and anxiety. Pxs oral intake is 850 ml, voided 3x, without BM. Px slept for 3.5 hours. At 0630, px is asleep on bed in right side lying position. Last COWS 8 CIWA 12. Bed on lowest position, side rails up and call light within reach. Well continue to monitor. Px endorsed to AM shift nurse.
--- NOTE | 2017-11-28 07:30 | NUR ---
START OF SHIFT Pt 27 y/o female admitted for benzo and opiate substance abuse. Pt received in room on bed with eyes closed resting, but easily arousable to name. Pt alert and oriented to name, place, and time. Perrla. Skin warm and moist to touch. Respirations even and unlabored. Bilateral hand tremors noted. Pt appears disheveled. Clothes and empty drink bottles scattered throughout the room. Encouraged to maintain hygiene. Pt anxious this morning and focused on pain of teeth and right thigh where I&D was performed. Dressing on I&D of right thigh intact and place with no redness on surrounding area and is not hot to touch. It was reported that pt slept for 3.5 hours last night. Last reported cows=8 ciwa=12 reported at 0400. Pt is on a 5 day valium taper and is on day 5. Pt is also on a 5 day subutex taper and is on day 4. Bed on lowest position with side rails x2 up for safety. Call light within reach.
[2017-11-28 08:00] VITALS: BP 123/66
[2017-11-28] MEDS: DIAZEPAM 5 MG TABLET PO SCH ×2 (09:21→20:25)
[2017-11-28] MEDS: DICYCLOMINE HCL 20 MG TABLET PO SCH ×3 (09:21→20:25)
[2017-11-28] MEDS: LACTOBACILLUS RHAMNOSUS GG 1 EACH CAPSULE PO SCH ×2 (09:21→20:25)
[2017-11-28] MEDS: SULFAMETH/TRIMETH 800/160 MG TABLET PO SCH ×2 (09:21→20:26)
[2017-11-28] MEDS: ACETAMINOPHEN 325 MG TABLET PO SCH ×3 (09:21→20:23)
[2017-11-28] MEDS: GABAPENTIN 300 MG CAPSULE PO SCH (09:21)
[2017-11-28] MEDS: CEPHALEXIN MONOHYDRATE 500 MG CAPSULE PO SCH ×3 (09:21→20:25)
[2017-11-28] MEDS: BACLOFEN 10 MG TABLET PO SCH (09:21)
[2017-11-28] MEDS: BUPRENORPHINE HCL 2 MG TAB.SUBL SL SCH ×2 (09:25→20:26)
[2017-11-28] MEDS: SODIUM HYPOCHLORITE 0.125% 473 ML BOTTLE TP SCH (09:26)
[2017-11-28] MEDS: BENZOCAINE ORAL CARE 12 ML BOTTLE MM PRN ×2 (09:27→20:58)
[2017-11-28] MEDS: KETOROLAC TROMETHAMINE 30 MG INJ IM PRN (09:37)
--- NOTE | 2017-11-28 09:46 | NUR ---
PRN Pt with c/o pain of right thigh 7/10 aching and sharp on I&D site. Toradol IM prn per MD order given and tolerated well.
--- NOTE | 2017-11-28 09:48 | NUR ---
PRN Pt with c/o toothache 11/17. Anbesol prn per MD order given and tolerated well.
[2017-11-28] MEDS: CLONIDINE HCL 0.1 MG TABLET PO SCH ×2 (10:15→14:27)
--- NOTE | 2017-11-28 10:47 | NUR ---
PRN KRISTY Pt states pain 09/17.
--- NOTE | 2017-11-28 10:48 | NUR ---
ADEEL WAGNER Pt states toothache 08/17.
[2017-11-28 12:00] VITALS: BP 103/63
[2017-11-28] MEDS ORDERED: MIRALAX 17 GM POWD.PACK PO ONE (13:00)
[2017-11-28] MEDS: DOCUSATE SODIUM 250 MG CAPSULE PO SCH (13:40)
--- NOTE | 2017-11-28 13:47 | NUR ---
PRN Pt states has migraine. Excedrin po prn per MD order given and tolerated well.
--- NOTE | 2017-11-28 13:47 | NUR ---
PRN Pt states has body aches gneralized 12/17. Robaxin po prn per MD order given and tolerated well.
--- NOTE | 2017-11-28 13:47 | NUR ---
PRN Pt states feels anxious. vistaril po prn per MD order given and tolerated well.
[2017-11-28] MEDS: GABAPENTIN 400 MG CAPSULE PO SCH ×2 (14:26→20:26)
[2017-11-28] MEDS: BACLOFEN 20 MG TABLET PO SCH ×2 (14:27→20:26)
--- NOTE | 2017-11-28 14:47 | NUR ---
ADEEL WAGNER Pt observed walking around the unit.
--- NOTE | 2017-11-28 14:47 | NUR ---
PRN EVAL Pt states migraine 07/20.
--- NOTE | 2017-11-28 14:47 | NUR ---
ADEEL WAGNER Pt observed walking around the unit.
--- NOTE | 2017-11-28 15:45 | NUR ---
Client was prompted to attend group counseling sessions.
[2017-11-28 16:00] VITALS: BP 110/70
--- NOTE | 2017-11-28 18:46 | NUR ---
END OF SHIFT Pt 27 y/o female admitted for benzo and opiate substance abuse. Pt alert and oriented to name, place, and time. Perrla. Skin warm and moist to touch. Respirations even and unlabored. Bilateral hand tremors noted. Pt disheveled and unkempt. Clothes scattered throughout the room. Encouraged to maintain hygiene. Pt with period so of anxiety throughout the day. Pt mainly focused on tooth pain and right thigh pain ( post I&D). Dressing and packing change completed to right thigh and tolerated well. Pt observed mostly in recreational room throughout the day. Pt attended group activity. Pt was seen by MD today. Pt medication compliant and tolerated well. No ASE noted. Pt is on a 5 day valium taper and is on day 5. Pt also on a 5 day subutex taper and is on day 4. Cows=13@0800, 13@1200, and 11@1600. Ciwa=12@0800, 12@1200, and 11@1600. Bed on lowest position with siderails x 2 up for safety. Call light within reach.
--- NOTE | 2017-11-28 19:49 | NUR ---
START OF SHIFT NOTE Rcvd report from outgoing nurse, pt. is in her room. Pt. is 27 y/o female A/O to person, place, time, and purpose. Pt. was admitted for medically supervised withdrawal from Benzodiazepines and Opiates. Pt. has been presenting w/ anxiety, depressed mood, and fine tremors. Pt. has been c/o abdominal cramping and constipation. Pt. denies S/I and H/I. PRN Ambisol was given for tooth cavity, noted effective. PRN Toradol, Robaxin, Excedrin, and Vistaril for body aches and increased anxiety, noted effective. Last CIWA 11 and COWS 11 @ 1600. Call light is within reach. Pt. will continue to be monitored and needs met.
[2017-11-28 20:00] VITALS: BP 104/59
[2017-11-28] MEDS: QUETIAPINE FUMARATE 100 MG TABLET PO PRN (20:27)
--- NOTE | 2017-11-28 20:27 | NUR ---
PRN ADMINISTRATION PRN Milk of Magnesia given for constipation x 3 days. PRN Seroquel 150mg given for depression and insomnia. Will reassess pt. in 1hr.
--- NOTE | 2017-11-28 20:58 | NUR ---
PRN ADMINISTRATION PRN Ambesol given for tooth pain. Pt. states they have a cavity that needs to be filled. Will reassess pt. in 1 hr.
[2017-11-28] MEDS ORDERED: CLONIDINE HCL 0.2 MG TABLET PO SCH (21:00)
--- NOTE | 2017-11-28 21:27 | NUR ---
PRN REASSESSMENT Pt.is in bed w/ her eyes closed. Pt.'s breathing is unlabored and even.
--- NOTE | 2017-11-28 21:58 | NUR ---
PRN REASSESSMENT Pt. states relief of tooth pain. Pt.'s V/S as follows: P:83, RR:18, SPO2: 99%, and BP:100/63.
--- NOTE | 2017-11-29 00:01 | NUR ---
CIWA AND COWS DEFERRED. V/S REFUSED Pt. is in bed w/ her eyes closed. Pt.'s breathing is unlabored and even.
--- NOTE | 2017-11-29 04:01 | NUR ---
CIWA AND COWS DEFERRED. V/S REFUSED Pt. is in bed w/ her eyes closed. Pt.'s breathing is unlabored and even.
--- NOTE | 2017-11-29 07:14 | NUR ---
END OF SHIFT NOTE Endorsed pt. to oncoming nurse, pt. is in her room. Pt. is 27 y/o female A/O to person, place, time, and purpose. Pt. was admitted for medically supervised withdrawal from Benzodiazepines and Opiates. Pt. continues to present w/ anxiety, depressed mood, and fine tremors. Pt. has been c/o abdominal cramping and constipation (x4 days). Pt. denies S/I and H/I. PRN Ambisol was given for tooth cavity pain, noted effective. PRN Milk of Magnesia 30ml given for constipation, noted ineffective. PRN Seroquel 150mg given for insomnia, noted effective. Pt.s fluid intake was 1355ml and she voided 3 times. Pt. slept for 6 hrs. Last CIWA 11 and COWS 12 @ 1999. Call light is within reach.
--- NOTE | 2017-11-29 07:30 | NUR ---
START OF SHIFT Pt 27 y/o female admitted for benzo and opiate substance abuse. Pt received in room on bed awake with television on. Pt alert and oriented to name, place, and time. Perrla. Skin warm and moist to touch. Respirations even and unlabored. Bilateral hand tremors noted. Pt appears disheveled. Clothes scattered throughout the room. Encouraged to maintain hygiene. Pt focused on toothache and right thigh pain this morning. Dressing to right thigh intact and in place, and wound site with no redness and is not hot to touch. It was reported that pt slept for 6 hours last night. Last reported cows=11 ciwa=12 @ 2100. Pt completed a 5 day valium taper. Pt also on a 5 day subutex taper and is on day 5. Bed on lowest position with side rails x2 up for safety. Call light within reach.
[2017-11-29 08:00] VITALS: BP 110/73
[2017-11-29] MEDS ORDERED: BUPRENORPHINE HCL 2 MG TAB.SUBL SL SCH (09:00)
[2017-11-29] MEDS: LACTOBACILLUS RHAMNOSUS GG 1 EACH CAPSULE PO SCH ×2 (09:07→20:37)
[2017-11-29] MEDS: SULFAMETH/TRIMETH 800/160 MG TABLET PO SCH ×2 (09:08→20:37)
[2017-11-29] MEDS: ACETAMINOPHEN 325 MG TABLET PO SCH ×3 (09:08→20:37)
[2017-11-29] MEDS: DOCUSATE SODIUM 250 MG CAPSULE PO SCH (09:09)
[2017-11-29] MEDS: DICYCLOMINE HCL 20 MG TABLET PO SCH ×3 (09:09→20:37)
[2017-11-29] MEDS: GABAPENTIN 400 MG CAPSULE PO SCH (09:09)
[2017-11-29] MEDS: BACLOFEN 20 MG TABLET PO SCH ×4 (09:09→20:36)
[2017-11-29] MEDS: CLONIDINE HCL 0.1 MG TABLET PO SCH (09:10)
[2017-11-29] MEDS: BENZOCAINE ORAL CARE 12 ML BOTTLE MM PRN (09:10)
[2017-11-29] MEDS: CEPHALEXIN MONOHYDRATE 500 MG CAPSULE PO SCH ×3 (09:10→20:38)
[2017-11-29] MEDS: SODIUM HYPOCHLORITE 0.125% 473 ML BOTTLE TP SCH (09:10)
[2017-11-29] MEDS: KETOROLAC TROMETHAMINE 30 MG INJ IM PRN (09:11)
[2017-11-29] MEDS: HYDROXYZINE PAMOATE 25 MG CAPSULE PO PRN (09:17)
[2017-11-29] MEDS: MIRALAX 17 GM POWD.PACK PO PRN (09:18)
--- NOTE | 2017-11-29 09:18 | NUR ---
PRN Pt states has 10/10 pain of aching and sharp of right thigh. Toradol IM prn per MD order given and tolerated well. Pt also with c/o toothache 6/10. Anbesol prn per MD order given and tolerated well. Pt also states is constipated. Miralaxx mix solution prn per MD order given and tolerated well. Pt also states she is anxious. Pressured speech noted. Vistaril po prn per MD order given and tolerated well.
--- NOTE | 2017-11-29 10:18 | NUR ---
PRN EVAL Pt states pain 6/10 of right thigh. Pt also states toothache is more tolerable at this time. Pt observed laying in bed in room.
[2017-11-29 12:00] VITALS: BP 91/63
[2017-11-29] MEDS ORDERED: MAGNESIUM CITRATE 296 ML BOTTLE PO PRN (12:15)
[2017-11-29] MEDS ORDERED: HYDROXYZINE PAMOATE 25 MG CAPSULE PO PRN (12:15)
--- NOTE | 2017-11-29 12:44 | NUR ---
PRN Pt states is constipated. Mg citrate prn per MD order given and tolerated well.
--- NOTE | 2017-11-29 12:44 | NUR ---
PRN Pt anxious and restless. Pt easily irritable and agitated. Pt observed in room pacing. Pt was seen by MD earlier. ciwa=11. Valium po one time dose per MD order given and tolerated well.
[2017-11-29] MEDS ORDERED: DIAZEPAM 5 MG TABLET PO ONE (13:00)
--- NOTE | 2017-11-29 13:44 | NUR ---
PRN EVAL MG CITRATE Pt still with no BM noted. Pt states still able to pass gas.
--- NOTE | 2017-11-29 13:44 | NUR ---
PRN VALIUM EVAL Pt with ciwa=5. Pt with slight hand tremors. Pt with decreased anxiety noted.
[2017-11-29] MEDS: CLONIDINE HCL 0.2 MG TABLET PO SCH ×2 (15:40→20:37)
[2017-11-29] MEDS: GABAPENTIN 300 MG CAPSULE PO SCH ×2 (15:40→20:38)
[2017-11-29 16:00] VITALS: BP 108/64
[2017-11-29] MEDS ORDERED: FLEET ENEMA 133 ML BOTTLE RC ONE (16:00)
--- NOTE | 2017-11-29 16:18 | NUR ---
ENNEMA PRN Pt still with no BM. Pt states able to pass flatulence. MD made aware with new order for fleet enema prn per MD order given and tolerated well.
--- NOTE | 2017-11-29 18:59 | NUR ---
END OF SHIFT Pt 27 y/o female admitted for benzo and opiate substance abuse. Pt alert and oriented to name, place, and time. Perrla. Skin warm and moist to touch. Respirations even and unlabored. Bilateral hand tremors noted. Pt appears disheveled. Clothes and empty drink bottles scattered throughout the room. Encouraged to maintain hygiene. Pt with periods of anxiety throughout the day, mostly in the morning. Dressing and packing change completed to right thigh and tolerated well. Pt observed mostly in room throughout the day. Pt attended group activity. Pt was seen by MD today. Pt medication compliant and tolerated well. No ASE noted. Pt completed a 5 day valium taper. Pt also on a 5 day subutex taper and is on day 5. Cows=12@0800, 10@1200, and 5@1600. Ciwa=10@0800, 11@1200, and 5@1600. Bed on lowest position with siderails x 2 up for safety. Call light within reach. Pt is scheduled to be discharged tomorrow.
[2017-11-29] MEDS ORDERED: DICY20TA28 PO (19:28)
[2017-11-29] MEDS ORDERED: HYDR-3895 PO (19:28)
[2017-11-29] MEDS ORDERED: DOCU250C14 PO (19:28)
[2017-11-29] MEDS ORDERED: GABA-534 PO (19:28)
[2017-11-29] MEDS ORDERED: CLON0.1T14 PO (19:28)
[2017-11-29] MEDS ORDERED: IBUP-1957 PO (19:28)
[2017-11-29] MEDS ORDERED: METH-406 PO (19:28)
[2017-11-29] MEDS ORDERED: SULF1TAB3 PO (19:28)
[2017-11-29] MEDS ORDERED: LACT1CAP57 PO (19:28)
[2017-11-29] MEDS ORDERED: BACL20TA PO (19:28)
[2017-11-29] MEDS ORDERED: CEPH500C2 PO (19:28)
--- NOTE | 2017-11-29 19:41 | NUR ---
START OF SHIFT NOTE Rcvd report from outgoing nurse, pt. is in her room. Pt. is a 27 y/o female A/O to person, place, time, and purpose. Pt. was admitted for medically supervised withdrawal from Opiates and Benzodiazepines. Pt. has been presenting w/ lethargy, body aches, sweats, constipation (x4 days), disheveled and unkempt appearance, depressed mood, and flat affect. PRN Magnesium Citrate and an Enema given for constipation, noted effective. PRN Vistaril given for increased anxiety, noted effective. PRN Toradol and Ambesol given for tooth pain from cavity, noted effective. Pt. denies S/I and H/I. Last CIWA 5 and COWS 5 @ 1600. Call light is within reach. Pt. will continue to be monitored and needs met.
[2017-11-29 20:00] VITALS: BP 104/66
[2017-11-30] VITALS: BP 108/72
[2017-11-30] MEDS: QUETIAPINE FUMARATE 100 MG TABLET PO PRN (00:42)
--- NOTE | 2017-11-30 00:42 | NUR ---
PRN ADMINISTRATION PRN Seroquel given for insomnia. Pt states they are having difficulty sleeping. Will reassess pt in 1 hr.
--- NOTE | 2017-11-30 01:42 | NUR ---
PRN REASSESSMENT PRN Seroquel 150mg given for insomnia. Pt. is in bed w/ her eyes closed. Pt's breathing is unlabored and even.
--- NOTE | 2017-11-30 04:00 | NUR ---
CIWA AND COWS DEFERRED. V/S REFUSED Pr is in bed w/ her eyes closed. Pt's breathing is unlabored and even.
--- NOTE | 2017-11-30 07:14 | NUR ---
END OF SHIFT NOTE Endorsed pt to oncoming nurse, pt. is in her room. Pt. is a 27 y/o female A/O to person, place, time, and purpose. Pt. was admitted for medically supervised withdrawal from Opiates and Benzodiazepines. Pt. continues to present w/ lethargy, body aches, sweats, constipation (x5 days), disheveled and unkempt appearance, depressed mood, and flat affect. PRN Seroquel 150mg given for insomnia, noted effective. Pt had a bowel movement at around 1700. Pt. denies S/I and H/I. Pts fluid intake was 1355ml and she voided 2 times. Pt slept for 7.5hrs. Last CIWA 7 and COWS 7 @ 0000. Call light is within reach.
--- NOTE | 2017-11-30 07:30 | NUR ---
Start of Shift Roving Weight Gauger received report on 27 year old female admitted to [facility] on 11/24/17 for Benzodiazepine, Opiate and Methadone withdrawals. Pt endorses allergies to Sulfa, full code and regular diet. PMH of PSVT with ablation and Hepatitis C with a PPH of anxiety. Pt has completed the Valium and Subutex tapers, in anticipation of todays discharge. Pt s last COWS 7 and CIWA 7, per NOC report. Pt received Seroquel(insomnia) on NOC, per report. Roving Weight Gauger encounters pt in pts room. Pt is A/O x4 and makes needs known. Linear thought process with clwear speech. Pt is anxious about discharge. Normal affect with congruent mood. Bed in low position, wheels locked and side rails x2. Will continue to monitor, support and encourage according to plan of care.
[2017-11-30 08:24] VITALS: BP 104/67
[2017-11-30] MEDS: SODIUM HYPOCHLORITE 0.125% 473 ML BOTTLE TP SCH (09:00)
[2017-11-30] MEDS: DICYCLOMINE HCL 20 MG TABLET PO SCH (09:03)
[2017-11-30] MEDS: BACLOFEN 20 MG TABLET PO SCH (09:03)
[2017-11-30] MEDS: GABAPENTIN 300 MG CAPSULE PO SCH (09:03)
[2017-11-30] MEDS: LACTOBACILLUS RHAMNOSUS GG 1 EACH CAPSULE PO SCH (09:03)
[2017-11-30] MEDS: ACETAMINOPHEN 325 MG TABLET PO SCH (09:03)
[2017-11-30 09:04] VITALS: BP 104/67
[2017-11-30] MEDS: DOCUSATE SODIUM 250 MG CAPSULE PO SCH (09:04)
[2017-11-30] MEDS: CLONIDINE HCL 0.2 MG TABLET PO SCH (09:04)
[2017-11-30] MEDS: CEPHALEXIN MONOHYDRATE 500 MG CAPSULE PO SCH (09:04)
[2017-11-30] MEDS: SULFAMETH/TRIMETH 800/160 MG TABLET PO SCH (09:04)
--- NOTE | 2017-11-30 09:04 | NUR ---
ADEEL Kelly Pt requests something for anxiety as she discharges. Savings Counselor confirmed with MD for administration of medication. Savings Counselor administered medication per MD order and pt tolerated well. Will continue to monitor, support and encourage according to plan of care.
--- NOTE | 2017-11-30 09:25 | NUR ---
Discharge Pt educated on importance of continued sobriety, follow-up care and medication compliance. Pt educated on medication indication, route, timing and name. Prescriptions provided for pt. Pt educated on discharge education. Pt provided with copies of educational material, copies of labs, TB results(refused) and medication education. Pt with no home medications to return. Pt had all personal belongings signed for and returned. Pt A/O x4, makes needs known. Linear thought process with clear speech pattern. Cooperative, anxious with a normal affect and anxious mood. Pt denies SI/HI or A/VH, nor any other associated symptoms. Pt discharges per ambulation, escorted to awaiting private car for transportation to [facility]. Pt witnessed leaving the hospital property.
== END 2017-11-30 09:25 | disposition other institution (70) | DRG 895 ==
LOC: SRC 11-24 00:44
PROVIDERS: ADMIT Internal Medicine; ATTEND Internal Medicine
PROC: HZ2ZZZZ Detoxification Services for Substance Abuse Treatment (ICD-10-PCS; principal; 2017-11-24)
PROC: 0J9L3ZZ Drainage of Right Upper Leg Subcutaneous Tissue and Fascia, Percutaneous Approach (ICD-10-PCS; 2017-11-26)
PROC: HZ41ZZZ Group Counseling for Substance Abuse Treatment, Behavioral (ICD-10-PCS; 2017-11-28)
DX: F13.232 Sedative, hypnotic or anxiolytic dependence with withdrawal with perceptual disturbance (principal); L02.415 Cutaneous abscess of right lower limb; I47.1 Supraventricular tachycardia; L03.115 Cellulitis of right lower limb; F11.23 Opioid dependence with withdrawal; F17.210 Nicotine dependence, cigarettes, uncomplicated; F41.9 Anxiety disorder, unspecified; S71.131S Puncture wound without foreign body, right thigh, sequela; X78.8XXS Intentional self-harm by other sharp object, sequela; D69.6 Thrombocytopenia, unspecified; K08.89 Other specified disorders of teeth and supporting structures; G43.909 Migraine, unspecified, not intractable, without status migrainosus; F32.9 Major depressive disorder, single episode, unspecified; Z20.5 Contact with and (suspected) exposure to viral hepatitis; R73.9 Hyperglycemia, unspecified
CPT/HCPCS: 36415; 70030-TC; 80307; 80346; 80361; 82746; 83690; 83735; 84443; 84703; 85025; 86592; 86705; 86803; 87070; 87077; 87340; 87806; 93005; A4663; A9150; G0480; J1885; J3490; Q0162

== ENCOUNTER 2018-03-07 19:00 | Inpatient (IN) | payer BC, OTHER ==
[2018-03-07] VITALS: BP 96/42
[~2018-03-07] VITALS: Ht 167.6 cm; Wt 67.1 kg
[~2018-03-07 19:00] MED LIST: BACL20TA PO; CEPH500C2 PO; CLON0.1T14 PO; DICY20TA28 PO; DOCU250C14 PO; GABA-534 PO; HYDR-3895 PO; IBUP-1957 PO; LACT1CAP57 PO; SULF1TAB3 PO
[2018-03-07 20:00] VITALS: BP 108/63
[2018-03-07] MEDS ORDERED: LOPERAMIDE HCL 2 MG CAPSULE PO PRN ×2 (21:00)
[2018-03-07] MEDS ORDERED: MIRALAX 17 GM POWD.PACK PO PRN (21:00)
[2018-03-07] MEDS ORDERED: LORAZEPAM 1 MG TABLET PO PRN (21:00)
[2018-03-07] MEDS ORDERED: MAG HYDROX/AL HYDROX/SIMETH 30 ML LIQUID UDC PO PRN (21:00)
[2018-03-07] MEDS ORDERED: MAGNESIUM HYDROXIDE 30 ML LIQUID UDC PO PRN (21:00)
[2018-03-07] MEDS ORDERED: ONDANSETRON 4 MG/2 ML VIAL IM PRN (21:00)
[2018-03-07] MEDS ORDERED: DICYCLOMINE HCL 20 MG TABLET PO PRN (21:00)
[2018-03-07] MEDS ORDERED: LORAZEPAM 2 MG/1 ML VIAL IM PRN (21:00)
[2018-03-07] MEDS ORDERED: diphenhydrAMINE 50 MG CAPSULE PO PRN (21:00)
[2018-03-07] MEDS: ONDANSETRON ODT 4 MG TAB.RAPDIS SL PRN (21:40)
[2018-03-07] MEDS ORDERED: TRAZODONE 50 MG TABLET PO ONE (22:00)
[2018-03-07 22:08] LABS: *AMPHETAMINE, URINE NEGATIVE (NEGATIVE); *BARBITURATE, URINE NEGATIVE (NEGATIVE); *CANNABINOID, URINE NEGATIVE (NEGATIVE); *COCCAINE, URINE NEGATIVE (NEGATIVE); *OPIATE, URINE POSITIVE (NEGATIVE); *PHENCYCLIDINE SCREEN,URINE NEGATIVE (NEGATIVE)
[2018-03-07 22:22] LABS: *URINE HCG, QUAL NEGATIVE (NEGATIVE)
[2018-03-07] MEDS: LORAZEPAM 1 MG TABLET PO PRN (22:29)
[2018-03-07 23:36] LABS: BASOPHILS % (AUTO) 0.2 % (0.0-2.0); EOSINOPHILS # (AUTO) 0.3 K/uL (0.0-0.7); EOSINOPHILS % (AUTO) 2.8 % (0.0-7.0); HEMATOCRIT 38.2 % (31.2-41.9); HEMOGLOBIN 13.5 g/dL (10.9-14.3); LYMPHOCYTES # (AUTO) 0.7 K/uL (20.0-40.0); LYMPHOCYTES % (AUTO) 7.5 % (20.5-51.5); MEAN CORPUSCULAR HEMOGLOBIN 31.6 uug (24.7-32.8); MEAN CORPUSCULAR HGB CONC 35 g/dL (32.3-35.6); MEAN CORPUSCULAR VOLUME 89.4 fL (75.5-95.3); MONOCYTES # (AUTO) 0.3 K/uL (2.0-10.0); MONOCYTES % (AUTO) 2.8 % (0.0-11.0); NEUTROPHILS % (AUTO) 86.7 % (38.5-71.5); PLATELET COUNT (AUTO) 131 K/uL (179-408); RED BLOOD CELL COUNT(AUTO) 4.27 MIL/uL (3.63-4.92); WHITE BLOOD COUNT (AUTO) 9.2 K/uL (3.8-11.8)
[2018-03-07 23:53] LABS: ALANINE AMINOTRANSFERASE 36 U/L (14-59); ALKALINE PHOSPHATASE 91 U/L (50-136); AMYLASE 21 U/L (25-115); ASPARTATE AMINOTRANSFERASE 28 U/L (15-37); BILIRUBIN,TOTAL 0.7 mg/dL (0.2-1.0); CARBON DIOXIDE 30 mmol/L (21-32); CHLORIDE 100 mmol/L (98-107); CREATININE 0.7 mg/dL (0.6-1.3); GLUCOSE 151 mg/dL (74-106); LIPASE 84 U/L (73-393); MAGNESIUM 1.6 mg/dL (1.8-2.4); POTASSIUM 3.1 mmol/L (3.5-5.1); TOTAL PROTEIN, SERUM 7.3 g/dL (6.4-8.2); UREA NITROGEN, BLOOD 11 mg/dL (7-18)
[2018-03-07 23:58] LABS: ETHANOL < 3 MG/DL (0-0)
[2018-03-08] VITALS: BP 96/42
[2018-03-08 00:02] LABS: THYROID STIMULATING HORMONE 3.901 mIU/mL (0.358-3.740)
[2018-03-08] MEDS ORDERED: AMOX500C2 PO (02:56)
[2018-03-08] MEDS ORDERED: DIME25TA2 PO (02:56)
[2018-03-08 04:00] VITALS: BP 91/46
[2018-03-08 08:00] VITALS: BP 98/62
[2018-03-08] MEDS: IBUPROFEN 600 MG TABLET PO PRN ×2 (08:20→18:53)
[2018-03-08] MEDS: MULTIVITAMINS,THERAPEUTIC TABLET PO SCH (08:21)
[2018-03-08] MEDS: METHOCARBAMOL 750 MG TABLET PO PRN ×2 (08:21→18:53)
[2018-03-08] MEDS: LORAZEPAM 1 MG TABLET PO PRN ×2 (08:26→18:10)
[2018-03-08] MEDS ORDERED: TUBERCULIN,PURIF.PROT.DERIV. 5 TU/0.1 ML TEST ID ONE (09:00)
[2018-03-08] MEDS ORDERED: POTASSIUM CHLORIDE 20 MEQ TAB.PRT.SR PO ONE (09:00)
[2018-03-08] MEDS ORDERED: MAGNESIUM OXIDE 400 MG TABLET PO ONE (09:00)
[2018-03-08] MEDS: BUPRENORPHINE HCL 2 MG TAB.SUBL SL PRN ×2 (11:07→18:10)
[2018-03-08 12:00] VITALS: BP 105/65
[2018-03-08] MEDS: HYDROXYZINE PAMOATE 25 MG CAPSULE PO PRN (13:01)
[2018-03-08] MEDS: AMOXICILLIN TRIHYDRATE 500 MG CAPSULE PO SCH ×2 (14:46→21:05)
[2018-03-08 16:00] VITALS: BP 125/85
[2018-03-08 20:00] VITALS: BP 94/60
[2018-03-08] MEDS: ACETAMINOPHEN 325 MG TABLET PO PRN (21:05)
[2018-03-08] MEDS: TRAZODONE 50 MG TABLET PO PRN (21:05)
[2018-03-08] MEDS: VALACYCLOVIR HCL 500 MG TABLET PO SCH (21:06)
[2018-03-08] MEDS ORDERED: LORAZEPAM 1 MG TABLET PO ONE (21:15)
[2018-03-09] VITALS: BP 92/68
[2018-03-09] MEDS: HYDROXYZINE PAMOATE 25 MG CAPSULE PO PRN (03:55)
[2018-03-09] MEDS: METHOCARBAMOL 750 MG TABLET PO PRN ×2 (03:55→12:08)
[2018-03-09 04:00] VITALS: BP 96/57
[2018-03-09] MEDS: AMOXICILLIN TRIHYDRATE 500 MG CAPSULE PO SCH ×3 (06:29→21:21)
[2018-03-09] MEDS: IBUPROFEN 600 MG TABLET PO PRN (06:31)
[2018-03-09] MEDS: ACETAMINOPHEN 325 MG TABLET PO PRN (08:07)
[2018-03-09] MEDS: CLONIDINE HCL 0.1 MG TABLET PO PRN (08:07)
[2018-03-09] MEDS: MULTIVITAMINS,THERAPEUTIC TABLET PO SCH (08:07)
[2018-03-09] MEDS: BUPRENORPHINE HCL 2 MG TAB.SUBL SL SCH ×3 (08:08→21:21)
[2018-03-09] MEDS: PHENOBARBITAL 60 MG TABLET PO SCH ×4 (08:08→21:21)
[2018-03-09] MEDS: VALACYCLOVIR HCL 500 MG TABLET PO SCH ×2 (08:10→21:21)
[2018-03-09 08:12] VITALS: BP 110/66
[2018-03-09] MEDS ORDERED: 4 DAY PHENOBARBITAL TAPER -SERENITY PROTOCOL PO PRN (09:00)
[2018-03-09] MEDS ORDERED: 4 DAY TAPER BUPRENORPHINE -SERENITY PROTOCOL SL PRN (09:00)
[2018-03-09 11:07] LABS: HEPATITIS B SURFACE AG Negative (Negative)
[2018-03-09 12:16] VITALS: BP 94/57
[2018-03-09 14:55] LABS: BASOPHILS % (AUTO) 0.5 % (0.0-2.0); EOSINOPHILS # (AUTO) 0.3 K/uL (0.0-0.7); EOSINOPHILS % (AUTO) 4.6 % (0.0-7.0); HEMATOCRIT 35.3 % (31.2-41.9); HEMOGLOBIN 12.3 g/dL (10.9-14.3); LYMPHOCYTES # (AUTO) 1.1 K/uL (20.0-40.0); LYMPHOCYTES % (AUTO) 17.6 % (20.5-51.5); MEAN CORPUSCULAR HEMOGLOBIN 31.4 uug (24.7-32.8); MEAN CORPUSCULAR HGB CONC 35 g/dL (32.3-35.6); MONOCYTES # (AUTO) 0.4 K/uL (2.0-10.0); NEUTROPHILS # (AUTO) 4.4 K/uL (1.8-8.9); NEUTROPHILS % (AUTO) 71.3 % (38.5-71.5); PLATELET COUNT (AUTO) 150 K/uL (179-408); RED BLOOD CELL COUNT(AUTO) 3.91 MIL/uL (3.63-4.92); WHITE BLOOD COUNT (AUTO) 6.1 K/uL (3.8-11.8)
[2018-03-09 15:27] LABS: CARBON DIOXIDE 27 mmol/L (21-32); CHLORIDE 109 mmol/L (98-107); CREATININE 0.5 mg/dL (0.6-1.3); GLUCOSE 147 mg/dL (74-106); MAGNESIUM 1.6 mg/dL (1.8-2.4); POTASSIUM 3.8 mmol/L (3.5-5.1); UREA NITROGEN, BLOOD 10 mg/dL (7-18)
[2018-03-09 15:42] LABS: THYROID STIMULATING HORMONE 3.358 mIU/mL (0.358-3.740)
[2018-03-09 16:59] VITALS: BP 97/61
[2018-03-09] MEDS ORDERED: MAGNESIUM OXIDE 400 MG TABLET PO ONE (17:00)
[2018-03-09 20:00] VITALS: BP 105/64
[2018-03-09] MEDS: TRAZODONE 50 MG TABLET PO PRN (21:35)
[2018-03-10] VITALS: BP 106/65
[2018-03-10] MEDS: AMOXICILLIN TRIHYDRATE 500 MG CAPSULE PO SCH ×3 (06:31→21:08)
[2018-03-10 08:00] VITALS: BP 109/67
[2018-03-10] MEDS: PHENOBARBITAL 60 MG TABLET PO SCH ×3 (08:32→21:09)
[2018-03-10] MEDS: ONDANSETRON ODT 4 MG TAB.RAPDIS SL PRN (08:33)
[2018-03-10] MEDS: METHOCARBAMOL 750 MG TABLET PO PRN ×2 (08:33→21:09)
[2018-03-10] MEDS: MULTIVITAMINS,THERAPEUTIC TABLET PO SCH (08:33)
[2018-03-10] MEDS: VALACYCLOVIR HCL 500 MG TABLET PO SCH ×2 (08:36→21:10)
[2018-03-10] MEDS ORDERED: BUPRENORPHINE HCL 2 MG TAB.SUBL SL SCH (09:00)
[2018-03-10] MEDS: HYDROXYZINE PAMOATE 25 MG CAPSULE PO PRN (10:09)
[2018-03-10 12:00] VITALS: BP 98/55
[2018-03-10 13:20] VITALS: BP 104/60
[2018-03-10] MEDS: CLONIDINE HCL 0.1 MG TABLET PO PRN (13:21)
[2018-03-10] MEDS: IBUPROFEN 600 MG TABLET PO PRN (13:21)
[2018-03-10] MEDS: BUPRENORPHINE HCL 2 MG TAB.SUBL SL SCH ×2 (15:45→21:10)
[2018-03-10 16:30] VITALS: BP 94/56
[2018-03-10 20:00] VITALS: BP 110/60
[2018-03-10] MEDS: ACETAMINOPHEN 325 MG TABLET PO PRN (21:08)
[2018-03-10] MEDS: TRAZODONE 50 MG TABLET PO PRN (21:10)
[2018-03-11] VITALS: BP 98/60
[2018-03-11 04:00] VITALS: BP 109/65
[2018-03-11 05:06] LABS: TRIIODOTHYRONINE, FREE 2.3 pg/mL (2.0-4.4)
[2018-03-11] MEDS: IBUPROFEN 600 MG TABLET PO PRN ×3 (05:06→19:47)
[2018-03-11] MEDS: AMOXICILLIN TRIHYDRATE 500 MG CAPSULE PO SCH ×3 (06:56→21:43)
[2018-03-11 08:00] VITALS: BP 99/64
[2018-03-11] MEDS: PHENOBARBITAL 60 MG TABLET PO SCH ×2 (08:45→21:43)
[2018-03-11] MEDS: BUPRENORPHINE HCL 2 MG TAB.SUBL SL SCH ×3 (08:45→21:43)
[2018-03-11] MEDS: CLONIDINE HCL 0.1 MG TABLET PO PRN ×2 (08:45→15:07)
[2018-03-11] MEDS: METHOCARBAMOL 750 MG TABLET PO PRN (08:45)
[2018-03-11] MEDS: MULTIVITAMINS,THERAPEUTIC TABLET PO SCH (08:45)
[2018-03-11] MEDS: VALACYCLOVIR HCL 500 MG TABLET PO SCH ×2 (08:58→21:43)
[2018-03-11 12:00] VITALS: BP 99/59
[2018-03-11] MEDS: HYDROXYZINE PAMOATE 25 MG CAPSULE PO PRN (13:02)
[2018-03-11] MEDS ORDERED: TRAZODONE 50 MG TABLET PO PRN (13:45)
[2018-03-11] MEDS ORDERED: TRAZODONE 100 MG TABLET PO PRN (13:45)
[2018-03-11 16:00] VITALS: BP 102/66
[2018-03-11 20:00] VITALS: BP 105/67
[2018-03-12] VITALS: BP 109/65
[2018-03-12] MEDS: IBUPROFEN 600 MG TABLET PO PRN (02:45)
[2018-03-12] MEDS: METHOCARBAMOL 750 MG TABLET PO PRN (03:45)
[2018-03-12 04:00] VITALS: BP 112/79
[2018-03-12] MEDS: AMOXICILLIN TRIHYDRATE 500 MG CAPSULE PO SCH ×3 (06:14→21:00)
[2018-03-12 08:00] VITALS: BP 107/70
[2018-03-12] MEDS ORDERED: PHENOBARBITAL 60 MG TABLET PO SCH (09:00)
[2018-03-12] MEDS ORDERED: BUPRENORPHINE HCL 2 MG TAB.SUBL SL SCH (09:00)
[2018-03-12] MEDS: VALACYCLOVIR HCL 500 MG TABLET PO SCH ×2 (09:33→20:55)
[2018-03-12] MEDS: MULTIVITAMINS,THERAPEUTIC TABLET PO SCH (09:33)
[2018-03-12 12:00] VITALS: BP 101/65
[2018-03-12] MEDS ORDERED: KETOROLAC TROMETHAMINE 30 MG INJ IM PRN (12:00)
[2018-03-12] MEDS ORDERED: CLON0.1T14 PO (14:39)
[2018-03-12] MEDS ORDERED: HYDR-3895 PO (14:39)
[2018-03-12] MEDS ORDERED: TRAZ-214 PO (14:40)
[2018-03-12] MEDS ORDERED: METH-406 PO (14:40)
[2018-03-12] MEDS ORDERED: IBUP-1957 PO (14:40)
[2018-03-12] MEDS ORDERED: TRAZODONE 100 MG TABLET PO PRN (14:45)
[2018-03-12 16:00] VITALS: BP 103/67
[2018-03-12] MEDS: HYDROXYZINE PAMOATE 25 MG CAPSULE PO PRN (18:55)
[2018-03-12 20:09] LABS: *HCV QUANT 3081570 IU/mL (.)
[2018-03-12 20:38] VITALS: BP 108/71
[2018-03-12] MEDS: ACETAMINOPHEN 325 MG TABLET PO PRN (20:56)
[2018-03-13 00:51] VITALS: BP 105/58
[2018-03-13 03:00] VITALS: BP 107/65
[2018-03-13] MEDS: ACETAMINOPHEN 325 MG TABLET PO PRN (03:08)
[2018-03-13] MEDS: AMOXICILLIN TRIHYDRATE 500 MG CAPSULE PO SCH (06:38)
[2018-03-13 08:00] VITALS: BP 106/72
[2018-03-13] MEDS: VALACYCLOVIR HCL 500 MG TABLET PO SCH (08:30)
[2018-03-13] MEDS: MULTIVITAMINS,THERAPEUTIC TABLET PO SCH (08:30)
== END 2018-03-13 09:34 | disposition other institution (70) | DRG 895 ==
LOC: SRC 19:24
PROVIDERS: ADMIT Family Medicine Addiction Medicine; ATTEND Internal Medicine
PROC: HZ2ZZZZ Detoxification Services for Substance Abuse Treatment (ICD-10-PCS; principal; 2018-03-07)
PROC: HZ31ZZZ Individual Counseling for Substance Abuse Treatment, Behavioral (ICD-10-PCS; 2018-03-09)
DX: F11.23 Opioid dependence with withdrawal (principal); B17.10 Acute hepatitis C without hepatic coma; F40.01 Agoraphobia with panic disorder; G47.00 Insomnia, unspecified; F17.210 Nicotine dependence, cigarettes, uncomplicated; Z79.899 Other long term (current) drug therapy; F10.239 Alcohol dependence with withdrawal, unspecified; Y90.9 Presence of alcohol in blood, level not specified; D64.9 Anemia, unspecified; O24.439 Gestational diabetes mellitus in the puerperium, unspecified control; I47.9 Paroxysmal tachycardia, unspecified; F41.1 Generalized anxiety disorder; E83.42 Hypomagnesemia; E87.6 Hypokalemia; R21 Rash and other nonspecific skin eruption; F32.9 Major depressive disorder, single episode, unspecified; D50.9 Iron deficiency anemia, unspecified; F13.230 Sedative, hypnotic or anxiolytic dependence with withdrawal, uncomplicated; R94.6 Abnormal results of thyroid function studies; D69.6 Thrombocytopenia, unspecified
CPT/HCPCS: 36415; 80307; 80361; 83690; 83735; 84443; 84480; 84481; 84703; 85025; 85730; 86580; 86592; 86705; 86803; 87340; 87521; 87806; G0480; J1885; J8499; Q0162; Q0163